=== PATIENT | male | born 1985 | race African-American/Black ===

== ENCOUNTER 2018-03-23 19:37 | Emergency (ER) | payer OTHER ==
[~2018-03-23] VITALS: Ht 175.3 cm; Wt 104.3 kg
[~2018-03-23 19:37] MED LIST: BACITRACIN1 APPLIC TOPIC; CLINDAMYCIN HC150 MG ORAL; FLOVENT2 PUFFS INH; MULTIVITAMINS1 EA14 PO; STRIBILD TABLE1 EACH PO; UNOBMED; ZYRTEC10 MG ORAL
[2018-03-23] MEDS ORDERED: GENVOYA TABLET1 EACH PO (19:44)
[2018-03-23] MEDS ORDERED: SUDOGEST30 MG PO (19:44)
[2018-03-23] MEDS ORDERED: ZYRTEC10 MG ORAL (19:44)
[2018-03-23] MEDS ORDERED: VITAMIN D1000 UNI1 ORAL (19:44)
[2018-03-23] MEDS ORDERED: ZOFRAN4 M3 ORAL (19:44)
[2018-03-23] MEDS ORDERED: Morphine Sulfate 4mg/ml Inj (IV USE ONLY) IVP ONE ×2 (20:00→23:45)
[2018-03-23 20:11] LABS: BASOPHILS % (AUTO) 0.8 % (0.0-2.0); HEMATOCRIT 43.6 % (42.0-52.0); LYMPHOCYTES % (AUTO) 12.2 % (20.0-45.0); MEAN CORPUSCULAR VOLUME 94 FL (80-99); PLATELET COUNT 169 K/UL (150-450); RED BLOOD COUNT 4.62 M/UL (4.70-6.10); RED CELL DISTRIBUTION WIDTH 10.9 % (11.6-14.8); WHITE BLOOD COUNT 8.9 K/UL (4.8-10.8)
[2018-03-23 20:23] LABS: ANION GAP 10 mmol/L (5-15); BLOOD UREA NITROGEN 8 mg/dL (7-18); CALCIUM 8.7 MG/DL (8.5-10.1); CARBON DIOXIDE 25 MMOL/L (21-32); CHLORIDE 101 MMOL/L (98-107); POTASSIUM 3.5 MMOL/L (3.5-5.1); SODIUM 136 MMOL/L (136-145)
[2018-03-23 20:28] LABS: ALANINE AMINOTRANSFERASE 24 U/L (12-78); ALBUMIN 3.8 G/DL (3.4-5.0); ALBUMIN/GLOBULIN RATIO 0.8 (1.0-2.7); ALKALINE PHOSPHATASE 85 U/L (46-116); ASPARTATE AMINO TRANSFERASE 20 U/L (15-37); BILIRUBIN,TOTAL 0.5 MG/DL (0.2-1.0)
[2018-03-23 20:30] VITALS: BP 127/78
[2018-03-23] MEDS ORDERED: Ciprofloxacin 500mg tab ORAL ONE (21:45)
--- NOTE | 2018-03-23 22:40 | Emergency Room Report ---
History of Present Illness General Chief Complaint: Abdominal Pain Source: Patient Present Illness HPI Mr. Baez is a healthy 33 yo male with hx of HIV since 2008. He has undetectable viral load on Genvoya. Presents with fever, chills, body aches, vomiting and diarrhea. 4 days of symptoms. Seen at [facility]. Dx'd with viral gastroenteritis and flu symptoms. Rx given lomotil and antiemetic. continues to have symptoms including myalgias. no cough,. no dyspnea. generalized stomach upset. Allergies: Coded Allergies: SULFA (SULFONAMIDE ANTIBIOTICS) (Unverified Allergy, Unknown, 03/23/18) SULFAMETHOXAZOLE (Verified Allergy, Unknown, Hives, 02/22/14) open blisters lips, tongue, skin on arms and legs TRIMETHOPRIM (Verified Allergy, Unknown, Hives, 02/22/14) open blisters lips, tongue, skin on arms and legs Patient History Past Medical History: HIV Social History: Denies: smoking Nursing Documentation-PMH Hx Hypertension: Yes Hx Cancer: No Hx Gastrointestinal Problems: No Hx Neurological Problems: No Review of Systems Constitutional: Reports: fever Respiratory: Denies: cough Cardiovascular: Denies: chest pain Gastrointestinal: Reports: abdominal pain, diarrhea, nausea, vomiting Skin: Denies: rash All Other Systems: negative except mentioned in HPI Physical Exam Vital Signs Date Time Temp Pulse Resp B/P (MAP) Pulse Ox O2 Delivery O2 Flow Rate FiO2 03/23/18 19:32 100.0 88 16 122/76 95 Room Air 100.0 Sp02 EP Interpretation: reviewed, normal General Appearance: no apparent distress, alert, GCS 15, non-toxic Head: normocephalic, atraumatic Eyes: bilateral eye normal inspection ENT: hearing grossly normal, normal pharynx, no angioedema, normal voice Neck: full range of motion, supple/symm/no masses Respiratory: chest non-tender, lungs clear, normal breath sounds, speaking full sentences Cardiovascular #1: regular rate, rhythm, no edema Gastrointestinal: normal bowel sounds, non tender, soft, non-distended, no guarding, no rebound Genitourinary: normal inspection Musculoskeletal: back normal, gait/station normal, normal range of motion, non- tender, calf tenderness Neurologic: alert, oriented x3, responsive, motor strength/tone normal, sensory intact, speech normal Psychiatric: judgement/insight normal, memory normal, mood/affect normal Skin: normal color, no rash, warm/dry, well hydrated Medical Decision Making Diagnostic Impression: Primary Impression: Gastroenteritis ER Course Mr. Baez presents with low grade fever, n/v/d, no peritonitis, will need abx for persistent symptoms of bacterial gastroenteritis. Tolerated fluids in ED. rx: ciprofloxacin Labs Test 03/23/18 19:42 White Blood Count 8.9 K/UL (4.8-10.8) Red Blood Count 4.62 M/UL (4.70-6.10) Hemoglobin 15.0 G/DL (14.2-18.0) Hematocrit 43.6 % (42.0-52.0) Mean Corpuscular Volume 94 FL (80-99) Mean Corpuscular Hemoglobin 32.5 PG (27.0-31.0) Mean Corpuscular Hemoglobin Concent 34.5 G/DL (32.0-36.0) Red Cell Distribution Width 10.9 % (11.6-14.8) Platelet Count 169 K/UL (150-450) Mean Platelet Volume 7.6 FL (6.5-10.1) Neutrophils (%) (Auto) 75.0 % (45.0-75.0) Lymphocytes (%) (Auto) 12.2 % (20.0-45.0) Monocytes (%) (Auto) 11.0 % (1.0-10.0) Eosinophils (%) (Auto) 1.0 % (0.0-3.0) Basophils (%) (Auto) 0.8 % (0.0-2.0) Sodium Level 136 MMOL/L (136-145) Potassium Level 3.5 MMOL/L (3.5-5.1) Chloride Level 101 MMOL/L (98-107) Carbon Dioxide Level 25 MMOL/L (21-32) Anion Gap 10 mmol/L (5-15) Blood Urea Nitrogen 8 mg/dL (7-18) Creatinine 1.0 MG/DL (0.55-1.30) Estimat Glomerular Filtration Rate > 60 mL/min (>60) Glucose Level 107 MG/DL (74-106) Calcium Level 8.7 MG/DL (8.5-10.1) Total Bilirubin 0.5 MG/DL (0.2-1.0) Aspartate Amino Transf (AST/SGOT) 20 U/L (15-37) Alanine Aminotransferase (ALT/SGPT) 24 U/L (12-78) Alkaline Phosphatase 85 U/L (46-116) Total Protein 8.4 G/DL (6.4-8.2) Albumin 3.8 G/DL (3.4-5.0) Globulin 4.6 g/dL Albumin/Globulin Ratio 0.8 (1.0-2.7) Lipase 99 U/L (73-393) Lab Results Impression normal white count, normal anion gap, Last Vital Signs Date Time Temp Pulse Resp B/P (MAP) Pulse Ox O2 Delivery O2 Flow Rate FiO2 03/23/18 20:30 90 18 127/78 99 Room Air 03/23/18 20:19 100.0 Disposition: HOME, SELF-CARE Condition: Stable Referrals: [facility],REFERRING (PCP) YANELY LEBLANC Mar 23, 2018 22:39
[2018-03-23] MEDS ORDERED: CIPROFLOXACIN500 M2 ORAL (22:42)
[2018-03-23] MEDS ORDERED: Isovue-300 100ml vial INJ PRN (23:00)
[2018-03-23] MEDS ORDERED: Metoclopramide 10mg/2ml Inj IVP ONE (23:45)
--- NOTE | 2018-03-24 01:10 | Diagnostic Imaging Report ---
EXAM: CT Abdomen and Pelvis With Intravenous Contrast CLINICAL HISTORY: PAIN TECHNIQUE: Axial computed tomography images of the abdomen and pelvis with intravenous contrast. CTDI is 0.15, 19.28 mGy and DLP is 1057 mGy-cm. One or more of the following dose reduction techniques were used: automated exposure control, adjustment of the mA and/or kV according to patient size, use of iterative reconstruction technique. COMPARISON: 10/15/2008 FINDINGS: Lung bases: Unremarkable. No mass. No consolidation. ABDOMEN: Liver: Indeterminate subcentimeter calcified nodules along the inferior margin of the liver. Gallbladder and bile ducts: Gallbladder is absent. Pancreas: Unremarkable. Spleen: Unremarkable. Adrenals: Unremarkable. Kidneys and ureters: Unremarkable. No solid mass. No hydronephrosis. Stomach and bowel: Diffuse submucosal fat in the colon is a nonspecific finding that can be seen in the setting of obesity chronic inflammatory bowel disease. No pericolonic inflammatory stranding to suggest an acute inflammatory process. PELVIS: Appendix: No findings to suggest acute appendicitis. Bladder: Unremarkable. Reproductive: Unremarkable as visualized. ABDOMEN and PELVIS: Intraperitoneal space: Unremarkable. No free air. Bones/joints: No acute osseous abnormality. Soft tissues: Unremarkable. Vasculature: Unremarkable. No abdominal aortic aneurysm. Lymph nodes: Unremarkable. IMPRESSION: No acute findings.
[2018-03-24 01:20] VITALS: BP 120/80
[2018-03-24 01:49] VITALS: BP 132/70
[2018-03-24 02:05] VITALS: BP 132/70
[2018-03-24 02:43] LABS: APPEARANCE,URINE CLOUDY; BILIRUBIN, URINE NEGATIVE (NEGATIVE); COLOR,URINE YELLOW; GLUCOSE, URINE (UA) NEGATIVE (NEGATIVE); KETONES,URINE 4+ (NEGATIVE); LEUKOCYTE ESTERASE ,URINE NEGATIVE (NEGATIVE); NITRITE,URINE NEGATIVE (NEGATIVE); PH,URINE 5 (4.5-8.0); PROTEIN,URINE 1+ (NEGATIVE); UROBILINOGEN,URINE NORMAL MG/DL (0.0-1.0)
== END 2018-03-24 02:06 | disposition short-term general hospital (02) ==
LOC: EDBD 19:37 → EMR 19:45
DX: K52.9 Noninfective gastroenteritis and colitis, unspecified (principal); Z88.2 Allergy status to sulfonamides; Z88.3 Allergy status to other anti-infective agents
CPT/HCPCS: 36415; 74177; 80053; 80307; 81003; 83690; 85025; 96361; 96365; 96368; 96375; 96376; 99285; J0744; J2270; J2405; J2765; Q9967